=== PATIENT | female | born 1970 | race Caucasian/White ===

== ENCOUNTER 2017-08-11 06:59 | Day surgery (SDC) | payer BC ==
[~2017-08-11 06:59] MED LIST: Sodium Chloride 0.9% 10 ML Syringe FLUSH PRN
[2017-08-11] MEDS ORDERED: Ondansetron 4 MG/2 ML SDV IV ONE (07:00)
[2017-08-11] MEDS ORDERED: Clindamycin Phosphate 600 MG in Sodium Chloride 0.9% 100 ML IV ONE (07:00)
[2017-08-11] MEDS ORDERED: Ketorolac 30 MG/ML SDV IVPUSH ONE (07:00)
[2017-08-11] MEDS ORDERED: Lidocaine 1% 30 ML SDV INJECT ONE (07:00)
[2017-08-11] MEDS ORDERED: Propofol 200 MG/20 ML SDV IV ONE (07:00)
[2017-08-11] MEDS ORDERED: Midazolam 1 MG/ML 2 ML SDV IV ONE (07:00)
[2017-08-11] MEDS ORDERED: Dexamethasone 4 MG/ML SDV IV ONE (07:00)
[2017-08-11] MEDS ORDERED: Bupivacaine 0.5% 30 ML SDV INJECT ONE (07:00)
[2017-08-11] MEDS ORDERED: fentaNYL 100 MCG/2 ML SDV IV ONE (07:00)
[2017-08-11] MEDS ORDERED: Lidocaine 1% 30 ML SDV ONE (07:25)
[2017-08-11] MEDS ORDERED: Bupivacaine 0.5% 30 ML SDV ONE (07:25)
[2017-08-11] MEDS: Lactated Ringers 1,000 ML IV SCH ×2 (07:32→07:44)
[2017-08-11] MEDS ORDERED: Lidocaine 1% 30 ML SDV INFILT ONE ×3 (08:57)
[2017-08-11] MEDS ORDERED: Bupivacaine 0.5% 30 ML SDV INFILT ONE ×3 (08:57)
[2017-08-11] MEDS ORDERED: Acetaminophen/HYDROcodone 325-5 MG Tab PO PRN (11:51)
--- NOTE | 2017-08-11 16:37 | PCM.OPNOTE ---
- General Post-Op/Procedure Note Date of Surgery/Procedure: 08/11/17 Operative Procedure(s): left foot lapidus bunionectomy fusion, 2nd metatarsal georgi osteotomy, 5th metatarsal shaving bunionectomy Pre Op Diagnosis: Left foot painful bunion deformity, 2nd metatarsalgia, tailors bunion Post-Op Diagnosis: willa Anesthesia Technique: Local, MAC Primary Surgeon: Ashley Jean Anesthesia Provider: Alfredo Vazquez EBL in mLs: 10 Complications: none Condition: Good Free Text/Narrative:: Intake & Output 08/11/17 08/11/17 08/11/17 06:59 14:59 22:59 Intake Total 600 Balance 600 Pt tolerated procedure well and was transported to recovery with vascular status intact to left foot. Maria Del Carmen 3.0 and 2.0 cannulated screws used. Well padded L&U splint applied.
--- NOTE | 2017-08-12 00:34 | OR ---
DATE: 08/11/2017 PREOPERATIVE DIAGNOSES: 1. Left foot painful bunion deformity. 2. Left foot second metatarsalgia. 3. Left foot tailor's bunion. POSTOPERATIVE DIAGNOSES: 1. Left foot painful bunion deformity. 2. Left foot second metatarsalgia. 3. Left foot tailor's bunion. PROCEDURE PERFORMED: 1. Left foot first metatarsal cuneiform joint arthrodesis/bunionectomy. 2. Left foot second metatarsal Nancy osteotomy. 3. Fifth metatarsal shaving bunionectomy. ANESTHESIA: Local MAC with preoperative local block of 10 mL 1:1 mixture of 1% lidocaine plain and 0.5% Marcaine plain. TOURNIQUET TIME: 114 minutes, pneumatic ankle tourniquet. ESTIMATED BLOOD LOSS: Minimal. SPECIMEN: None. COMPLICATIONS: None. INDICATIONS: Sherri is a 46-year-old female, who presents with painful bunion deformities. She reports that it is much worse on her left foot. She also has a callus underneath the ball of her foot that is very painful for her. I have seen her a couple times in the past for the bunion and we have tried bunion padding, toe spacers, and wider shoes with no relief. I also did an injection, which she states helped calm down the bunion pain for a few months, but now the pain has returned. She has also had that callus now for quite a few months and she has pain to both areas whenever she is standing or walking. She is on her feet all day at [employer] and has to wear a steel-toed shoe. The pain is 9/10. She also was starting to get a painful tailor's bunion that just recently started. X-rays of the left foot reveal medially deviated first metatarsal with a significant intermetatarsal angle. On clinical exam, she does have a hypermobile first ray. Her second metatarsal is somewhat long. The patient voiced good understanding of proposed procedure and possible complications and elects to have surgery at this time. DESCRIPTION OF PROCEDURE: The patient was taken to the operating room, lying in supine position. After anesthesia induction as described above, the left foot was prepped and draped in usual sterile fashion. A pneumatic ankle tourniquet was inflated to 225 mmHg. Attention was then directed to the dorsal aspect of the left foot overlying the first metatarsal. Incision was made at this area, centered over the first metatarsal. The incision was then deepened with sharp and blunt dissection taking care to retract all neurovascular bundles. An inverted-L capsulotomy was made at the first metatarsophalangeal joint. The capsule was reflected to expose the first MTPJ. A medial eminence was noted and resected with a sagittal saw. The articular surface was inspected and there was noted to be a couple of defects on the very plantar aspect, which were drilled with a 0.062 inch K-wire. Remainder of the joint appeared healthy. Attention was then directed down to the first metatarsal cuneiform joint, which was exposed. All cartilage was resected from the metatarsal cuneiform joint via curettage. A bone rasp was used at the medial aspect to remove the apex. A 0.062 inch K-wire was used to fenestrate the subchondral bone as well as an osteotome on both sides of the fusion area. The osteotomy sites were then approximated to have good [id number] contact with reduction of the first intermetatarsal angle. Two partially threaded crossing Kinder 3.0 cannulated screws were then inserted. The osteotomy site was noted to be stable with varus, valgus, and axial forces applied. Fluoroscopy was used throughout this procedure to verify adequate reduction of the intermetatarsal angle as well as placement of fixation. A lateral release was also performed at the fibular sesamoid. Hallux was noted to be in a rectus alignment at this time. The first metatarsal was also fixed in slight plantar flexion, but it was noted at this time that the second metatarsal was short and still prominent, so it was decided to do the Nancy osteotomy. Attention was directed to the second metatarsophalangeal joint. Sharp and blunt dissection was made down to the level of the joint and the capsulotomy was made. The distal second metatarsal was exposed, and a sagittal saw was used to make an osteotomy, directed distal dorsal to proximal plantar, starting at the level just proximal to the articular surface of the second metatarsal and exiting just distal to the neck. A K-wire from the 2.0 screw set was used as temporary fixation and fluoroscopy was used to confirm that parabola of the metatarsal heads were maintained. The osteotomy site was then fixated with a Maria Del Carmen 2.0 cannulated partially threaded screw. It was verified that the screw did not exit through the metatarsal head plantarly and this was verified visually and also on fluoroscopy. Attention was then directed to the fifth metatarsal, where a 3 cm linear incision was made overlying the fifth metatarsophalangeal joint. Sharp and blunt dissection were performed down to the level of the joint. A capsulotomy was made and the distal fifth metatarsal was exposed. A sagittal saw was used to resect the lateral eminence of the fifth metatarsal. The fifth digit was noted to be in rectus alignment at this time. All areas were irrigated with copious amounts of sterile saline. A medial capsulorrhaphy was performed on the first metatarsal. Capsular closure on all three areas was completed with 3-0 Vicryl and skin closure was completed with 4-0 nylon. The area was dressed with Xeroform to the incision site, fluffs, Webril, and a well-padded L and U splint with the foot in neutral position. The patient tolerated the procedure and anesthesia well, and left the operating room for recovery with vital signs stable and vascular status intact to the left foot as noted by immediate hyperemia to all digits upon deflation of the ankle tourniquet. The patient was then discharged home when she met hospital discharge requirements. [facility] /[id number]
== END 2017-08-11 13:00 | disposition home or self-care (01) ==
LOC: DL.SDS 06:59
PROVIDERS: ATTEND Podiatrist
DX: M21.612 Bunion of left foot (principal); M21.622 Bunionette of left foot; M77.42 Metatarsalgia, left foot; L84 Corns and callosities; K21.9 Gastro-esophageal reflux disease without esophagitis; M06.9 Rheumatoid arthritis, unspecified; M81.0 Age-related osteoporosis without current pathological fracture; Z79.899 Other long term (current) drug therapy; Z88.0 Allergy status to penicillin; Z91.013 Allergy to seafood; Z88.2 Allergy status to sulfonamides; Z91.048 Other nonmedicinal substance allergy status
CPT/HCPCS: 28110; 28297; 28308; 81025; C1713; J1100; J1885; J2250; J2405; J2704; J3010; J7050; J7120; S0077